=== PATIENT | female | born 1975 | race Caucasian/White ===

== ENCOUNTER 2020-07-21 10:18 | Outpatient (CLI) | payer BC, SELFPAY ==
[2020-07-21 11:53] LABS: Free T4 Free Thyroxine 1.64 ng/mL (0.78-2.19)
[2020-07-21 11:55] LABS: Thyroid Stimulating Hormone 0.835 uIU/mL (0.465-4.680)
[2020-07-24 13:58] LABS: FSH 52.7 mIU/mL (***); LH 27.9 mIU/mL (***)
[2020-07-25 11:56] LABS: Prolactin 6.7 ng/mL (***)
[2020-07-25 23:36] LABS: Estradiol, Ultrasensitive 10 pg/mL
== END 2020-07-21 10:19 | disposition home or self-care (01) ==
PROVIDERS: PCP Family Medicine; Visit Provider Nurse Practitioner
DX: N93.8 Other specified abnormal uterine and vaginal bleeding (principal)
CPT/HCPCS: 36415; 82670; 83001; 83002; 84146; 84439; 84443

== ENCOUNTER → 2020-09-12 00:16 | Outpatient (CLI) | payer BC, SELFPAY ==
[2020-09-12 18:19] LABS: SARS-CoV-2 RNA PCR Negative
== END ==
PROVIDERS: Family Provider Hospitalist; PCP Family Medicine; Visit Provider Obstetrics & Gynecology Gynecology
DX: Z01.812 Encounter for preprocedural laboratory examination (principal); Z20.822 Contact with and (suspected) exposure to COVID-19
CPT/HCPCS: C9803; U0003; U0005

== ENCOUNTER 2020-09-15 00:20 | Day surgery (SDC) | payer BC, SELFPAY ==
[2020-09-09 13:51] VITALS: BMI 41.0
[2020-09-15 07:34] VITALS: BP 139/97; PULSE 97; RESP 18; TEMP 37.2; O2SAT 98
--- NOTE | 2020-09-15 07:45 | P.HP_ITS ---
History of Present Illness History of Present Illness Consent: Risks, benefits, and alternatives have been discussed and questions answered. Patient agrees to proceed with procedure. Chief complaint: Post Menpausal Bleeding Narrative: Myriam Small is a 45 year old female with postmenopausal bleeding. Hysteroscopy in office showed large polyp appearing mass. Patient did not tolerate attempt to remove mass. Recommend to proceed in OR and remove with myosure. Reviewed risks of infection, bleeding, perforation, and fluid imbalance. Agrees to proceed. Review of Systems Review of Systems: Narrative: review of systems not completed on date of surgery; patient states no change in status [facility] Past Medical History Medical History (Updated 09/15/20 @ 07:50 by Sherine Amaro MD) HTN (hypertension) Hypothyroid (normal spontaneous vaginal delivery) Rheumatoid arthritis Status post hysteroscopy Surgical History Surgical History (Updated 09/15/20 @ 07:49 by Sherine Amaro MD) S/P breast biopsy Social History Social History Smoking status: Never smoker Substance use: never Living arrangements: with friend(s) Gender identity (if verbalized by the patient): Female Spiritual care concerns: No Meds Home Medications and Allergies Home Medications Medication Instructions Recorded Confirmed Type diclofenac sodium 75 mg PO DAILY 09/09/20 09/09/20 History etanercept [Enbrel SureClick] 50 mg SUBCUT DAILY 09/09/20 09/09/20 History folic acid 1 mg PO DAILY 09/09/20 09/09/20 History levothyroxine [Synthroid] 150 mcg PO DAILY 09/09/20 09/09/20 History methotrexate sodium 25 mg PO DAILY 09/09/20 09/09/20 History montelukast 10 mg PO DAILY 09/09/20 09/09/20 History omeprazole 40 mg PO DAILY 09/09/20 09/09/20 History propranolol 20 mg PO DAILY 09/09/20 09/09/20 History Allergies Allergy/AdvReac Type Severity Reaction Status Date / Time diphenhydramine Allergy Mild Palpitation Verified 09/15/20 07:49 s Exam Const: General: healthy appearing and alert Orientation/consciousness: patient oriented x3 Resp: Effort & Inspection: normal respiratory effort Auscultation: clear to auscultation bilaterally Cardio: Rate: regular rate Rhythm: regular rhythm GI: GI Palp: Yes Soft to palpation, No Tenderness to palpation present (GI) and No Palpable mass present : External Female Exam: normal external appearance Speculum Exam - Vagina: normal appearance of the vagina and normal vaginal discharge Speculum Exam - Cervix: normal appearance of the cervix Bimanual exam- vagina & uterus: uterine size normal and consistency normal Bimanual Exam- Adnexa, other: normal adnexae and No adnexal tenderness Neuro: General: patient oriented x3 Assessment and Plan Assessment and plan (1) Post-menopausal bleeding: Code(s): N95.0 - Postmenopausal bleeding Status: Acute Assessment and Plan: Endometrial polyp noted in office and plan to remove with myosure.
--- NOTE | 2020-09-15 07:45 | WPDHPUPDATE1 ---
History and Physical Update Update Date/Time: 09/15/20 07:45 History and Physical has been reviewed, including an updated exam of the patient. There are NO changes in the patient's condition. Risks, benefits, and alternatives have been discussed and questions answered. Patient agrees to proceed with procedure.
[2020-09-15] MEDS: ACETAMINOPHEN 500 MG TABLET 1000 MG PO (07:47)
[2020-09-15] MEDS: LACTATED RINGERS 1,000 ML 30 ML IV CONT (08:24)
[2020-09-15 08:33] LABS: Hematocrit 39.8 % (37.0-47.0); Hemoglobin 13.4 g/dL (12.0-15.0)
--- NOTE | 2020-09-15 08:34 | P.PNAN_ITS ---
Anes - Initial Pre Proc Eval Procedure: Operation Date: 09/15/20 09:15 Proposed Procedures p Hysteroscopy Dilation and Curettage With Myosure - Sherine Amaro MD Date/Time: 09/15/20 08:34 Surgeon: Sherine Amaro MD Pre Op Diagnosis: Post Menpausal Bleeding Patient Data Age: 45 Gender: F Height: 5 ft 3 in Weight: 108 kg Allergies Allergy/AdvReac Type Severity Reaction Status Date / Time diphenhydramine Allergy Mild Palpitation Verified 09/15/20 07:49 s Home Medications Medication Instructions Recorded Confirmed Type diclofenac sodium 75 mg PO DAILY 09/09/20 09/15/20 History etanercept [Enbrel SureClick] 50 mg SUBCUT DAILY 09/09/20 09/15/20 History folic acid 1 mg PO DAILY 09/09/20 09/15/20 History levothyroxine [Synthroid] 150 mcg PO DAILY 09/09/20 09/15/20 History methotrexate sodium 25 mg PO DAILY 09/09/20 09/15/20 History montelukast 10 mg PO DAILY 09/09/20 09/15/20 History omeprazole 40 mg PO DAILY 09/09/20 09/15/20 History propranolol 20 mg PO DAILY 09/09/20 09/15/20 History Laboratory Tests 09/15/20 08:23 Hgb 13.4 g/dL g/dL (12.0-15.0) Hct 39.8 % % (37.0-47.0) Patient hx anesthesia problems: none Family hx anesthesia problems: none [facility] Past Medical History Medical History HTN (hypertension) Hypothyroid (normal spontaneous vaginal delivery) Rheumatoid arthritis Status post hysteroscopy Surgical History Surgical History S/P breast biopsy Social History Social History Smoking status: Never smoker Substance use: never Living arrangements: with friend(s) Gender identity (if verbalized by the patient): Female Spiritual care concerns: No Anes - Eval Final PreProcedure Day of Procedure 09/15/20 08:34 Patient weight: morbidly obese Heart: regular rate and rhythm Lungs: clear to auscultation Airway: Mallampati scale class II Neurological: alert and oriented Last oral intake: >/= 8 hours ASA classification: III Emergent: no Anesthetic plan: proceed Anesthesia type and monitoring: general GIVS and standard monitoring Informed Consent: The patient's anesthetic plan and its attendant risks and benefits were discussed with the patient/family/POA. Questions were solicited and answers provided to the satisfaction of the patient/family/POA.
[2020-09-15 09:28] VITALS: BP 139/90; PULSE 76; RESP 16; O2SAT 96
[2020-09-15] MEDS: oxyCODONE HCL (*CRX) 5 MG TAB IR PO (09:52)
[2020-09-15 10:00] VITALS: BP 145/97; PULSE 75
--- NOTE | 2020-09-15 10:08 | P.OP_ITS ---
Procedure Note - Detailed Date of procedure: 09/15/20 Pre-op diagnosis: Post Menpausal Bleeding Post-op diagnosis: same Procedure performed: D&C hysteroscopy with myosure resection of large polyp Description of procedure: The patient was taken to the operating room placed under anesthesia in the dorsal lithotomy position. She was prepped and draped in the usual sterile fashion. [place] speculum was placed in the vagina, cervix was grasped on the anterior lip with a tenaculum, and the cervix was injected with 1% lidocaine. The uterus was sounded to 8cm after os Finders were used to open the internal os. The cervix was then serially dilated with Hegars. The hysteroscope was placed with the stated findings. The MyoSure device is opened in placed. The large polyp was removed under direct visualization with the MyoSure device. The instruments were removed the medium sharp curette is used to curette the endometrium until a good uterine cry was noted in all areas. All vaginal instruments were then removed. Sponge, instrument, and needle counts are correct per the OR staff. Anesthesia: MAC and local Surgeon: Sherine Amaro MD Estimated blood loss (mL): 10 Drains: No Packing: No Pathology: yes (endometrial curettings and shavings) Complications: No immediate complications Condition: stable Disposition: PACU Findings: uterus 8 cm; large anterior polyp; grossly normal endometrium
[2020-09-15 10:30] VITALS: BP 128/87; PULSE 63
== END 2020-09-15 10:52 | disposition home or self-care (01) ==
PROVIDERS: Anesthesiology; Family Provider Hospitalist; PCP Family Medicine; Visit Provider Obstetrics & Gynecology Gynecology
PROC: 0U5B8ZZ Destruction of Endometrium, Via Natural or Artificial Opening Endoscopic (ICD-10-PCS; CPT 58563; principal; 2020-09-15 09:15)
DX: N95.0 Postmenopausal bleeding (principal); N84.0 Polyp of corpus uteri; I10 Essential (primary) hypertension; E03.9 Hypothyroidism, unspecified; M06.9 Rheumatoid arthritis, unspecified; E66.01 Morbid (severe) obesity due to excess calories; Z68.41 Body mass index [BMI] 40.0-44.9, adult
CPT/HCPCS: 58558; 36415; 85014; 85018; 88305; A9270; C9803; J1100; J1885; J2250; J2405; J2704; J3010; J7030; J7120; U0003; U0005

== ENCOUNTER 2023-04-07 04:33 | Emergency (ER) | payer BC, SELFPAY ==
[2023-04-07] VITALS (25 sets, daily range): BP systolic 112–134; BP diastolic 71–94; PULSE 78–90; RESP 16–18; TEMP 36.2; O2SAT 93–100
--- NOTE | ~2023-04-07 | CT_ITS ---
EXAMINATION: CT brain wo con DATE: 04/07/2023 08:49 INDICATION: Headache TECHNIQUE: Computed tomography (CT) of the head was performed without intravenous contrast. Sagittal and coronal reconstructions were performed. The mA was adjusted according to patient size. Iterative reconstruction technique was employed. The dose-length product was 605.33 mGy-cm. COMPARISON: Brain MR dated 12/17/2010 FINDINGS: No acute intracranial hemorrhage, acute infarction or abnormal extra axial fluid collection. Ventricl es are normal and symmetric. No mass/mass effect. Minimal fluid in the dependent aspect of the bilate ral maxillary sinuses. The orbits and mastoid air cells are normal. IMPRESSION: 1. Normal brain. No acute intracranial process. 2. Small amount of fluid in the dependent aspect of the bilateral maxillary sinuses. Correlate clinic ally for sinusitis. Reviewed, dictated and finalized at location A. IMPRESSION: 1. Normal brain. No acute intracranial process. 2. Small amount of fluid in the dependent aspect of the bilateral maxillary sin uses. Correlate clinically for sinusitis.
--- NOTE | 2023-04-07 07:15 | PC.NURSE ---
Patient report received from TEMI Garcia. All questions answered and care of patient assumed.
--- NOTE | 2023-04-07 07:20 | ED.GENADULT ---
HPI - General Adult General Chief complaint: Headache Stated complaint: Headache/migraine Time Seen by Provider: 04/07/23 07:19 Source: patient and family Mode of arrival: ambulatory Limitations: no limitations History of Present Illness HPI narrative: 47 years old white female came to the ED by private car complaining of right-sided temporal headache and pressure-like feeling across the face. Started last night, woke up at 3 AM with nausea and vomiting. 10 out of 10, associated with numbness of the right upper extremity. She denies any fever, chills, chest pain, shortness of breath or focal neurodeficit patient reports last migraine headache was years ago Related Data Home Medications Medication Instructions Recorded Confirmed diclofenac sodium 75 mg 75 mg PO DAILY 09/09/20 09/15/20 tablet,delayed release etanercept 50 mg/mL (1 mL) 50 mg subcut DAILY 09/09/20 09/15/20 subcutaneous pen injector (Enbrel SureClick) levothyroxine 150 mcg tablet 150 mcg PO DAILY 09/09/20 09/15/20 (Synthroid) montelukast 10 mg tablet 10 mg PO DAILY 09/09/20 09/15/20 omeprazole 40 mg capsule,delayed 40 mg PO DAILY 09/09/20 09/15/20 release propranolol 20 mg tablet 20 mg PO DAILY 09/09/20 09/15/20 Allergies Allergy/AdvReac Type Severity Reaction Status Date / Time diphenhydramine Allergy Mild Palpitation Verified 04/07/23 05:31 s Review of Systems Review of Systems: All systems reviewed & are unremarkable except as noted in HPI and below PMFSH Past Medical History Medical History Allergic rhinitis Depression GERD with esophagitis HTN (hypertension) Hypothyroidism Rheumatoid arthritis Vitamin D deficiency Surgical History Surgical History History of ankle surgery left History of colonoscopy 12/26/2009 History of esophagogastroduodenoscopy (EGD) 12/19/2009 History of surgery on left wrist 09/2010 S/P breast biopsy Status post hysteroscopy Family History Family History Mother Diabetes mellitus Hypertension Social History Social History Smoking status: Never smoker Alcohol intake: current Alcohol use details: Occasionally Substance use: never Substance use type: does not use Lack of Transportation: No Lack of Food: Never True Current Housing: I Have Housing Concerned About Future Housing: No Difficulty Paying Gas/Electric Bills: No Difficulty Paying for Meds: No Currently Unemployed: No Education: High School Diploma/GED Difficulty w/ Childcare or Family Care: No Living arrangements: with family Occupation/Education: occupation Gender identity (if verbalized by the patient): Female Sexual Orientation (if Verbalized by the Patient): Straight or Heterosexual Spiritual care concerns: No Exam Narrative: General appearance: Well-developed, well-nourished, have a towel across her eyes, light makes the headache worse Skin: Normal color Head: Normocephalic, nontraumatic Eyes: Clear conjunctiva ENT: Oropharynx normal, ears normal, nose normal Neck: Supple, nontender Chest and respiratory: Airway patent, no respiratory distress, no accessory muscle use Heart: Regular rate/rhythm Abdomen: Soft, nontender, no organomegaly, quiet bowel sounds Vascular: Normal peripheral pulses, normal capillary refill. Musculoskeletal: Normal range of motion, nontender back Neurologic: Alert and oriented ?3, TAXICAB STARTER is normal as tested, no gross motor deficit Course Reevaluation(s) Reevaluatio
[2023-04-07] MEDS: SODIUM CHLORIDE 0.9% IV 1,000 ML 999 ML IV CONT ×2 (07:57→09:06)
[2023-04-07] MEDS: METOCLOPRAMIDE HCL INJ 10 MG/2 ML VIAL IV PUSH (07:58)
[2023-04-07] MEDS: ONDANSETRON INJ 4 MG/2 ML VIAL IV PUSH (07:58)
[2023-04-07] MEDS: KETOROLAC 30 MG/ML VIAL (*BKC) IV PUSH (07:58)
[2023-04-07] MEDS: LORazepam INJ (*CRX) 2 MG/ML VIAL 1 MG IV PUSH (09:06)
[2023-04-07 09:20] LABS: Appearance Urine Cloudy (Clear); Bacteria Urine None Seen /hpf; Bilirubin Urine Negative (Negative); Blood Urine Negative (Negative); Color Urine Yellow (Yellow); Glucose Urine UA Negative (Negative); Ketones Urine Trace mg/dL (Negative); Leukocyte Esterase Ur 2+ LEU/UL (Negative); Nitrate Urine Negative (Negative); Non Pathogenic Casts 0-2; Protein Urine Negative (Negative); RBC Urine 0-2 /hpf (0-2); Specific Grav Ur 1.014 (1.001-1.035); Squamous Epithelial Cell Urine Few /hpf (Few); Urobilinogen Urine 0.2 mg/dL (<2.0)
[2023-04-07 09:55] LABS: Basophils Percent Auto 0.4 % (0.2-1.2); Eosinophils Absolute Auto 0.1 K/mm3 (0-0.3); Eosinophils Percent Auto 0.9 % (0-4.4); Hematocrit 36.5 % (37.0-47.0); Immature Granulocyte Absolute 0.01 K/mm3 (0.00-0.031); Immature Granulocyte Percent A 0.1 % (0-0.5); Lymphocytes Absolute Auto 1.57 K/mm3 (0.9-3.2); Lymphocytes Percent Auto 23.1 % (18.3-44.2); Mean Corpuscular HGB Conc 32.9 g/dl (32-36); Mean Corpuscular Hemoglobin 29.9 pg (26-34); Mean Platelet Volume 10.7 fl (7.4-10.4); Monocytes Absolute Auto 0.4 K/mm3 (0.1-0.6); Neutrophils Absolute Auto 4.7 K/mm3 (1.3-6.7); Neutrophils Percent Auto 69.5 % (45.5-73.1); Platelet Count Result 240 k/mm3 (150-375); Red Blood Count 4.01 M/mm3 (4.2-5.4); Red Cell Distribution Width 12.6 % (11.5-14.5); White Blood Count 6.8 K/mm3 (4.5-10.0)
[2023-04-07 10:03] LABS: Add Urine Microscopic? YES
[2023-04-07 10:05] LABS: Anion Gap 8 mmol/L (8-16); Blood Urea Nitrogen 11 mg/dL (7-17); Carbon Dioxide 25 mmol/L (22-30); Chloride 106 mmol/L (98-107); Estimated CRCL calculation 127 ml/min; Estimated Glomerular Filt Rate > 60; Glucose 96 mg/dL (65-110); Potassium 3.8 mmol/L (3.4-5.0); Sodium 139 mmol/L (137-145)
[2023-04-07 10:06] LABS: Alanine Aminotransferase 24 U/L (6-35); Albumin Level 3.6 g/dL (3.5-5.1); Alkaline Phosphatase 49 U/L (38-126); Aspartate Amino Transferase 32 U/L (14-36); Bilirubin,Total 0.5 mg/dL (0.2-1.3)
== END 2023-04-07 11:25 | disposition home or self-care (01) ==
PROVIDERS: Emergency Provider Emergency Medicine; PCP Family Medicine
DX: N39.0 Urinary tract infection, site not specified (principal); J01.90 Acute sinusitis, unspecified; R51.9 Headache, unspecified; I10 Essential (primary) hypertension; E03.9 Hypothyroidism, unspecified; E55.9 Vitamin D deficiency, unspecified; M06.9 Rheumatoid arthritis, unspecified; K21.00 Gastro-esophageal reflux disease with esophagitis, without bleeding
CPT/HCPCS: 36415; 70450; 80053; 81001; 85025; 87077; 87086; 87088; 96361; 96374; 96375; 99284; J1885; J2060; J2405; J2765; J7030

== ENCOUNTER 2024-10-26 13:39 | Outpatient (CLI) | payer BC, OTHER, SELFPAY ==
--- OUTSIDE RECORDS SUMMARY | 2024-10-26 13:48 | XMS_ITS | Referral Summary ---
Author Organization [facility] Address [address] [place] [address] Care Team Providers Care Key Sander Name Role Phone Arlen Gant Primary Care Provider Encounters Date Type Department Care Team Description 08/29/2024 Telephone [facility] [address] [place] [address] Sherine Shaw, [facility] 08/29/2024 Telephone [facility] at [facility] [address] [place] [address] Martha Goodwin MD PA from Last 3 Months Allergies Active Allergy Reactions Criticality Noted Date Comments Diphenhydramine Medications levothyroxine (SYNTHROID, LEVOTHROID) 150 mcg tablet daily. Active omeprazole (PriLOSEC) 40 mg capsule daily. Active propranolol (INDERAL) 20 mg tablet Take 1 tablet (20 mg total) by mouth daily 10/18/19 19 Active montelukast (SINGULAIR) 10 mg tablet Take 1 tablet (10 mg total) by mouth nightly 08/27/19 20 Active UNABLE TO FIND Med Name: Autologous serum in each eye 4 times a day Active Lactobacillus acidophilus (PROBIOTIC ORAL) Take by mouth daily Active pyridoxine (vitamin B-6) 100 mg tablet Take 1 tablet (100 mg total) by mouth daily Active semaglutide (WEGOVY) 2.4 mg/0.75 mL auto-injector 03/15/20 23 Active vitamin S89-[id number] acid 0.5-1 mg tablet 12/31/19 23 Active fluticasone propionate (FLONASE) 50 mcg/actuation nasal spray 2 sprays daily 09/07/19 24 Active etanercept (EnbreL SureClick) 50 mg/mL (1 mL) pen injector Inject 1 mL (50 mg total) under the skin once a week 12 mL 08/30/[address] (VOLTAREN) 75 mg EC tablet TAKE 1 TABLET TWICE A DAY 180 tablet 3 10/02/[address] (VOLTAREN) 75 mg EC tablet TAKE 1 TABLET TWICE A DAY 180 tablet 3 10/06/19 24 025 Discontinued Active Problems Problem Noted Date Diagnosed Date Class 1 obesity due to exces s calories with serious comorbidity and body mass index (BMI) of 33.0 to 33.9 in adult 11/04/2023 Assessment & Plan (11/04/2023 9:28 AM CDT): Doing great with weight loss! A body mass index (BMI) of 20-24.9 is considered healthy for most individuals. A combination of diet and exercise can help to attain/maintain a healthy BMI is recommended to improve vascular risk factors and diabetes risk. A 5-10% weight loss can have significant cardiovascular benefits. Also, each pound of weight lost unloads 3-4 pounds per square inch pressure from weight bearing joints. Significantly reducing or avoiding overly processed convenience foods, sugary drinks and alcohol is an important way to improve nutrition and reduce the intake of empty calories. Rheumatoid arthritis involvi ng multiple sites with positive rheumatoid factor 12/20/2022 Assessment & Plan (11/04/2023 9:48 AM CDT): Stable on enbrel. Continue same. Labs today. Follow up in 6 months and prn. Assessment & Plan (12/20/2022 12:44 PM CDT): Stable on enbrel, plan to continue same. Follow up in 6 months and prn. Encounter for long-term (cur rent) use of high-risk medication 12/20/2022 Assessment & Plan (11/04/2023 9:48 AM CDT): Long-term use of high-risk medication requiring regular monitoring. Labs ordered, no s/s of med tox or infection. Encouraged to work with PCP to make sure all recommended cancer screens and vaccinations are complete. Avoid live-vaccines unless reviewed with needle punch operator first. TB negative November 2022. Assessment & Plan (12/20/2022 12:44 PM CDT): Long-term use of high-risk medication requiring regular monitoring. Labs ordered, no s/s of med tox or infection. Encouraged to work with PCP to make sure all recommended cancer screens and vaccinations are complete. Avoid live-vaccines unless reviewed with needle punch operator first. Thyroid activity decreased 01/08/2015 Hypertension 01/08/2015 Pain in shoulder 11/05/2013 Assessment & Plan (11/04/2023 9:49 AM CDT): Most consistent with tendonitis. Prefers conservative treatment. Will take acetaminophen and her diclofenac. Advise warm pack prior to yoga and ice pack following. Home shoulder exercise handout provided. If not improving will proceed on to imaging and PT, possibly IASI. Immunizations Immunization Administration Dates Next Due Influenza, Quadrivalent, Ayla l Culture-based MDCK, Antibiotic Free, Intramuscular 07/01/2020 Influenza, Quadrivalent, Spl it, Preservative Free, Intramuscular 07/22/2021 Influenza, Trivalent, IM (MDV) 9,04/12/2018,07/05/2017,05/01 Influenza, Trivalent, Preser vative Free, Intramuscular 06/13/2024 Social History Tobacco Use Types Packs/Day Years Used Date Smoking Tobacco: Never Smokeless Tobacco: Never Tobacco Cessation:Counseling Given: Not Answered AUDIT-C Answer Date Recorded Q1: How often do you have a drink containing alc ohol? Monthly or less 06/13/2024 Q2: How many drinks containi ng alcohol do you have on a typical day when you are drinking? 1 or 2 06/13/2024 Q3: How often do you have si x or more drinks on one occasion? Never 06/13/2024 PHQ-2 Answer Date Recorded PHQ-2 Total Score (If total score is 3 or more points, staff should administer the PHQ-9) 0 06/13/2024 Comments Unknown Sex and Gender Information Value Date Recorded Sex Assigned at Not on file Legal Sex Female 12:32 PM TOWER OPERATOR Gender Identity Female 10/18/2018 8:14 AM CDT Sexual Orientation Not on file Last Filed Vital Signs Vital Sign Reading Time Taken Comments Blood Pressure 118/80 06/13/2024 10:51 AM TOWER OPERATOR Pulse 77 06/13/2024 10:51 AM TOWER OPERATOR Temperature 36.7 C (98 F) 06/13/2024 10:51 AM TOWER OPERATOR Respiratory Rate 18 11/04/2023 9:16 AM CDT Oxygen Saturation 98% 06/13/2024 10:51 AM TOWER OPERATOR Inhaled Oxygen Concentration - - Weight 90.3 kg (199 lb 1.6 oz) 06/13/2024 10:51 AM TOWER OPERATOR Height 162.6 cm (5' 4.02 ) 06/13/2024 10:[address] Body Mass Index 34.16 06/13/2024 10:51 AM TOWER OPERATOR Plan of Treatment Not on file Procedures Procedure Name Priority Date/Time Associated Diagnosis Comments HEPATITIS PANEL, ACUTE Routine 07/22/2021 1:58 PM TOWER OPERATOR Long-term use of high-risk medication from Last 3 Months or Most Recently Relevant to Health Maintenance Results * Hepatitis panel, acute (07/22/2021 1:58 PM TOWER OPERATOR) Hep A IgM Nonreactive Nonreactive [facility] Comment: Interpretive Data: If Hep A IgM Ab is reported as Equivocal, a new sample should be drawn in two weeks for testing. Current interpretive data was last revised on 19. Hep B core IgM Nonreactive Nonreactive [facility] Comment: Interpretive Data If HepB Core IgM Ab is reported as Equivocal, a new sample should be drawn in two weeks for testing. Current interpretive data was last revised on 19. Hep C Ab Nonreactive Nonreactive [facility] Comment: Interpretive Data Nonreactive: Antibodies to HCV not detected. Does NOT exclude the possibility of recent exposure to HCV. Equivocal: Equivocal for HCV antibodies. Supplemental molecular testing will be automatically performed to determine infection status in accordance with current CDC screening recommendations. Reactive: Positive for HCV antibodies. This may represent current or past HCV infection. Supplemental molecular testing will be automatically performed to determine current infection status in accordance with current CDC screening recommendations. Interpretive data was last revised on 2019. HepBsAg Nonreactive Nonreactive [facility] Blood 07/22/2021 1:58 PM TOWER OPERATOR 07/22/2021 4:23 PM TOWER OPERATOR Martha Goodwin MD LAB MICROBIOLOGY - NERAL ORDERABLES Final Result [facility] [address] [place] [address] from Last 3 Months or Most Recently Relevant to Health Maintenance Insurance [employer] FOR[facility] ACCESS Care Teams Key Sander Relationship Specialty Start Date End Date Arlen Gant PA [address] [place] [id number] PCP - General Family Medicine 03/23/21
--- OUTSIDE RECORDS SUMMARY | 2024-10-26 13:48 | XMS_ITS | Clinical Summary ---
Author Organization [facility] Care Team Providers Care Cow Puncher Name Role Phone Unavailable Primary Care Provider Unavailabl e Social History Tobacco Use Types Packs/Day Years Used Date Smoking Tobacco: Never Assessed Comments Unknown Sex and Gender Information Value Date Recorded Sex Assigned at Not on file Legal Sex Female 10:25 AM CDT Gender Identity Not on file Sexual Orientation Not on file Plan of Treatment Health Maintenance Due Date Last Done Comments Hepatitis C Virus (HCV) Screening 1977 TdaP Immunization 1977 Hepatitis B Immunization (1 of 3 - 19+ 3-dose series) 1996 Colonoscopy 2022 Colorectal Cancer Screening 2022 SARS-COV-2 Immunization (3 - 2023- season) 2024 11/03/2020, 10/12/2020 Respiratory Syncytial Virus (RSV) Immunization (Adult) (1 - 1-dose 75+ series) 2052 Influenza Immunization Completed 5, 07/01/2020, 04/17/2019, Additional history exists Meningococcal Immunization (ACWY) Aged Out No longer eligible based on patient's age to complete this topic Pneumococcal Immunization Combined Aged Out No longer eligible based on patient's age to complete this topic Rotavirus Immunization Aged Out No lo nger eligible based on patient's age to complete this topic
--- OUTSIDE RECORDS SUMMARY | 2024-10-26 13:48 | XMS_ITS | Clinical Summary ---
Author Organization [facility] Address [address] [place] [address] Care Team Providers Care Environmental Compliance Inspector Name Role Phone Arlen Gant Primary Care Provider [phone] Allergies Active Allergy Reactions Criticality Noted Date [...] mg/0.75 mL auto-injector 03/15/20 23 Active vitamin F36-wksvy acid 0.5-1 mg tablet 12/31/19 23 Active [...] are complete. Avoid live-vaccines unless reviewed with supervisor shrimp pond first. TB negative November 2022. Assessment & Plan (12/20/2022 12:44 PM CDT): Long-term use of high-risk medication requiring regular monitoring. Labs ordered, no s/s of med tox or infection. Encouraged to work with PCP to make sure all recommended cancer screens and vaccinations are complete. Avoid live-vaccines unless reviewed with supervisor shrimp pond first. Thyroid activity decreased 01/08/2015 Hypertension 01/08/2015 Pain in shoulder 11/05/2013 Assessment & Plan (11/04/2023 9:49 AM CDT): Most consistent with tendonitis. Prefers conservative treatment. Will take acetaminophen and her diclofenac. Advise warm pack prior to yoga and ice pack following. Home shoulder exercise handout provided. If not improving will proceed on to imaging and PT, possibly IASI. Encounters Date Type Department Care Team Description 08/29/2024 Telephone [facility] [address] [place] [address] Sherine Shaw [facility] 08/29/2024 Telephone [facility] Rheumatology at [facility] [address] [place] [address] Martha Goodwin MD PA from Last 3 Months Immunizations Immunization Administration Dates Next Due Influenza, Quadrivalent, Ayla l Culture-based MDCK, Antibiotic Free, Intramuscular 07/01/2020 Influenza, Quadrivalent, Spl it, Preservative Free, Intramuscular 07/22/2021 Influenza, Trivalent, IM (MDV) 9,04/12/2018,07/05/2017,05/01 Influenza, Trivalent, Preser vative Free, Intramuscular 06/13/2024 Medical History Medical History Date Comments GERD (gastroesophageal reflux disease) Anxiety Arthritis Autoimmune disease Rheumatoid arthritis (HCC) Family History Medical History Relation Name Comments Depression Brother DJ Diabetes Brother DJ Cancer Father Boni Depression Father Boni Hypertension Father Boni Family history of hypertension - (Added by TW Conv) Diabetes Mother Abeba Hypertension Mother Abeba Family history of hypertension - (Added by TW Conv) Diabetes Paternal Grandfather [place] Relation Name Status Comments Brother DJ Father Boni Mother Abeba Alive Paternal Grandfather [place] Social History Tobacco Use Types Packs/Day Years [...] on file Legal Sex Female 12:32 PM WIRE CUTTER Gender Identity Female 10/18/2018 8:14 AM CDT Sexual Orientation Not on file Obstetrics History Last Filed Vital Signs Vital Sign Reading Time Taken Comments Blood Pressure 118/80 06/13/2024 10:51 AM WIRE CUTTER Pulse 77 06/13/2024 10:51 AM WIRE CUTTER Temperature 36.7 C (98 F) 06/13/2024 10:51 AM WIRE CUTTER Respiratory Rate 18 11/04/2023 9:16 AM CDT Oxygen Saturation 98% 06/13/2024 10:51 AM WIRE CUTTER Inhaled Oxygen Concentration - - Weight 90.3 kg (199 lb 1.6 oz) 06/13/2024 10:51 AM WIRE CUTTER Height 162.6 cm (5' 4.02 ) 06/13/2024 10:[address] Body Mass Index 34.16 06/13/2024 10:51 AM WIRE CUTTER Plan of Treatment Health Maintenance Due Date Last Done Comments Breast Cancer Screening-Mammogram 1977 Cervical Cancer Screening 1977 Colon Cancer Screening-Colonoscopy 1977 DTaP/Tdap/Td Vaccine (1 - Tdap) 1988 Hepatitis B Screening 1995 Regular Well Visit/Exam 18-64 1995 Covid-19 Vaccine ( season) 2024 03/26/2021, 11/03/2020, 10/12/2020 Depression Screening 06/13/2025 06/13/2024, 10/30/19 Hepatitis C Screening Completed 07/22/2021 Influenza Vaccine Completed 06/13/2024, , 07/01/2020, Additional history exists Pneumococcal vaccine <65 Aged Out No longer eligible based on patient's age to complete this topic Procedures Procedure Name Priority Date/Time Associated Diagnosis Comments HEPATITIS PANEL, ACUTE Routine 07/22/2021 1:58 PM WIRE CUTTER Long-term use of high-risk medication from Last 3 Months or Most Recently Relevant to Health Maintenance Results * Hepatitis panel, acute (07/22/2021 1:58 PM WIRE CUTTER) Hep A IgM Nonreactive Nonreactive [facility] Comment: Interpretive Data: If Hep A IgM Ab is reported as Equivocal, a new sample should be drawn in two weeks for testing. Current interpretive data was last revised on 19. Hep B core IgM Nonreactive Nonreactive [facility] Comment: Interpretive Data If HepB Core IgM Ab is reported as Equivocal, a new sample should be drawn in two weeks for testing. Current interpretive data was last revised on 19. Hep C Ab Nonreactive Nonreactive [facility] Comment: Interpretive Data Nonreactive: Antibodies to HCV [...] last revised on 2019. HepBsAg Nonreactive Nonreactive [facility] Blood 07/22/2021 1:58 PM WIRE CUTTER 07/22/2021 4:23 PM WIRE CUTTER Martha Goodwin MD LAB MICROBIOLOGY - NERAL ORDERABLES Final Result [facility] [address] Department [place] [address] from Last 3 Months or Most Recently Relevant to Health Maintenance Insurance [employer] [place] ANTH ACCESS ANTHEM ACCESS Care Teams Environmental Compliance Inspector Relationship Specialty Start Date End Date Arlen Gant PA [address] [place], [place] [address] PCP - General Family Medicine 03/23/21
[2024-10-26 18:02] LABS: Hematocrit 43.8 % (37.0-47.0); Hemoglobin 14.6 g/dL (12.0-15.0); Mean Corpuscular HGB Conc 33.3 g/dl (32-36); Mean Corpuscular Hemoglobin 29.4 pg (26-34); Mean Corpuscular Volume 88.3 fl (80-100); Platelet Count Result 324 k/mm3 (150-375); Red Blood Count 4.96 M/mm3 (4.2-5.4); Red Cell Distribution Width 12.7 % (11.5-14.5); White Blood Count 9.1 K/mm3 (4.5-10.0)
[2024-10-26 18:26] LABS: Alanine Aminotransferase 23 U/L (6-35); Albumin Level 4.4 g/dL (3.5-5.1); Alkaline Phosphatase 80 U/L (38-126); Anion Gap 9 mmol/L (4-12); Aspartate Amino Transferase 33 U/L (14-36); Bilirubin,Total 0.7 mg/dL (0.2-1.3); Blood Urea Nitrogen 14 mg/dL (7-17); Calcium 9.3 mg/dL (8.4-10.2); Carbon Dioxide 27 mmol/L (22-30); Chloride 104 mmol/L (98-107); Cholesterol 192 mg/dL (0-200); Estimated Glomerular Filt Rate > 60; Glucose 80 mg/dL (65-110); HDL Direct 60 mg/dL; Potassium 4.2 mmol/L (3.4-5.0); Sodium 140 mmol/L (137-145); Triglycerides 118 mg/dL (<150)
[2024-10-26 18:37] LABS: LDL Cholesterol Direct 97 mg/dL
[2024-10-26 18:42] LABS: Free T4 Free Thyroxine 1.92 ng/dL (0.78-2.19); Vitamin D 25 Hydroxy 14.8 ng/mL
== END 2024-10-26 13:40 | disposition home or self-care (01) ==
LOC: ANHGOSHLAB 13:40
PROVIDERS: PCP Family Medicine; Visit Provider Family Medicine
DX: E03.9 Hypothyroidism, unspecified (principal); I10 Essential (primary) hypertension; E55.9 Vitamin D deficiency, unspecified; E66.9 Obesity, unspecified
CPT/HCPCS: 36415; 80053; 80061; 82306; 84439; 84443; 85027

== ENCOUNTER 2024-12-21 15:50 | Outpatient (CLI) | payer BC, OTHER, SELFPAY ==
--- NOTE | ~2024-12-21 | CT_ITS ---
EXAMINATION: CT sinus wo con DATE: 12/21/2024 16:14 INDICATION: Left maxillary sinusitis TECHNIQUE: Computed tomography (CT) of the paranasal sinuses was performed without intravenous contra st. The dose-length product was 411.72 mGy-cm. Automated exposure control and iterative reconstructio n technique were employed. COMPARISON: Dated 04/07/2023 FINDINGS: There is minimal mucosal thickening of the left maxillary sinus. The remainder of the paran tito sinuses are pneumatized. No mucoperiosteal reaction. Ostiomeatal units are patent. Mastoids are pneumatized. Rightward nasal septal deviation. IMPRESSION: 1. Mild left maxillary sinus disease. Reviewed, dictated and finalized at location A.
== END 2024-12-21 15:51 | disposition home or self-care (01) ==
LOC: GOSHIMG 15:50
PROVIDERS: PCP Family Medicine; Visit Provider Family Medicine
DX: J34.89 Other specified disorders of nose and nasal sinuses (principal)
CPT/HCPCS: 70486

== ENCOUNTER 2025-02-15 11:23 | Outpatient (CLI) | payer BC, OTHER, SELFPAY ==
--- OUTSIDE RECORDS SUMMARY | 2025-02-15 11:26 | XMS_ITS | Clinical Summary ---
Author Organization [facility] Address [address] [place] [address] Care Team Providers Care Nc Manager Name Role Phone Arlen Gant Primary Care Provider [phone] Allergies Active Allergy Reactions Criticality Noted Date Comments Diphenhydramine Diphenhydramine Hcl Hives Medium 01/02/2025 Medications levothyroxine (SYNTHROID, LEVOTHROID) 150 mcg tablet daily. Active omeprazole (PriLOSEC) 40 mg capsule daily. Active propranolol (INDERAL) 20 mg tablet Take 1 tablet (20 mg total) by mouth daily 9 Active montelukast (SINGULAIR) 10 mg tablet Take 1 tablet (10 mg total) by mouth nightly 0 Active UNABLE TO FIND Med Name: Autologous serum in each eye 4 times a day Active Lactobacillus acidophilus (PROBIOTIC ORAL) Take by mouth daily Active pyridoxine (vitamin B-6) 100 mg tablet Take 1 tablet (100 mg total) by mouth daily Active vitamin L54-wcpqb acid 0.5-1 mg tablet 3 Active fluticasone propionate (FLONASE) 50 mcg/actuation nasal spray 2 sprays daily [address] (VOLTAREN) 75 mg EC tablet TAKE 1 TABLET TWICE A DAY 180 tablet 3 5 Active amoxicillin-cla vulanate (AUGMENTIN) 875-125 mg per tablet Take 1 tablet by mouth 2 (two) times a day 5 Active amoxicillin-cla vulanate (AUGMENTIN) 250-125 mg per tablet 5 Active predniSONE (DELTASONE) 10 mg tablet 5 Active Zepbound 10 mg/0.5 mL pen injector 5 Active Synthroid 125 mcg tablet 5 Active etanercept (EnbreL SureClick) 50 mg/mL (1 mL) pen injector Inject 1 mL (50 mg total) under the skin once a week 12 mL 5 Active etanercept (EnbreL SureClick) 50 mg/mL (1 mL) pen injector Inject 1 mL (50 mg total) under the skin once a week 4 mL 2 5 02/05/20 25 Discontin ued(Reord er) Active Problems Problem Noted Date Diagnosed Date [...] are complete. Avoid live-vaccines unless reviewed with chief concierge first. TB negative November 2022. Assessment & Plan (12/20/2022 12:44 PM CDT): Long-term use of high-risk medication requiring regular monitoring. Labs ordered, no s/s of med tox or infection. Encouraged to work with PCP to make sure all recommended cancer screens and vaccinations are complete. Avoid live-vaccines unless reviewed with chief concierge first. Thyroid activity decreased 01/08/2015 Hypertension 01/08/2015 [...] Encounters Date Type Department Care Team Description 01/02/2025 2:58 PM CDT - 01/02/2025 11:59 PM CDT Hospital Encounter [address] [place] [id number] Discharge Disposition: Discharge to home or self care 01/02/2025 9:45 AM CDT Office Visit [facility] Rheumatology at [facility] [address] [place] [id number] Martha Goodwin MD Rheumatoid arthritis involving multiple sites with positive rheumatoid factor (HCC) (Primary Dx); Encounter for long-term (current) use of high-risk medication; Class 1 obesity due to excess calories with serious comorbidity and body mass index (BMI) of 33.0 to 33.9 in adult; Sjogren's syndrome with keratoconjunctivitis sicca from Last 3 Months Immunizations Immunization Administration Dates Next Due Influenza, Quadrivalent, Ayla l Culture-based MDCK, Antibiotic Free, Intramuscular 07/01/2020 Influenza, Quadrivalent, Spl it, Preservative Free, Intramuscular 07/22/2021 Influenza, Trivalent, IM (MDV) 9,04/12/2018,07/05/2017,05/01 Influenza, Trivalent, Preser vative Free, Intramuscular 06/13/2024 Medical History Medical History Date Comments GERD (gastroesophageal reflux disease) Anxiety Arthritis Autoimmune disease Rheumatoid arthritis (HCC) Maxillary sinusitis 2024 Family History Medical History Relation Name Comments Depression Brother DJ Diabetes Brother DJ Cancer Father Boni Depression Father Boni Hypertension Father Boni Family history of hypertension - (Added by TW Conv) Diabetes Mother Abeba Hypertension Mother Abeba Family history of hypertension - (Added by TW Conv) Diabetes Paternal Grandfather [place] Relation Name Status Comments Brother SAULO Father Boni Mother Abeba Alive Paternal Grandfather [place] Social History Tobacco Use Types Packs/Day Years [...] on file Legal Sex Female 12:32 PM TUBE ROOM SUPERVISOR Gender Identity Female 10/18/2018 8:14 AM CDT Sexual Orientation Not on file Obstetrics History Last Filed Vital Signs Vital Sign Reading Time Taken Comments Blood Pressure 124/92 01/02/2025 10:14 AM CDT Pulse 77 01/02/2025 10:14 AM CDT Temperature 36.7 C (98 F) 01/02/2025 10:14 AM CDT Respiratory Rate 16 01/02/2025 10:1 4 AM CDT Oxygen Saturation 98% 01/02/2025 10: 14 AM CDT Inhaled Oxygen Concentration - - Weight 92.5 kg (203 lb 14.4 oz) 025 10:14 AM CDT Height 162.6 cm (5' 4.02) 01/02/2025 1 0:14 AM CDT Body Mass Index 34.98 01/02/2025 10:14 AM CDT Plan of Treatment Health Maintenance Due Date Last Done Comments Cervical Cancer Screening 1977 Colon Cancer Screening-Colonoscopy 1977 DTaP/Tdap/Td Vaccine (1 - Tdap) 1988 Hepatitis B Screening 1995 Regular Well Visit/Exam 18-64 1995 Covid-19 Vaccine ( season) 2024 03/26/2021, 11/03/2020, 10/12/2020 Influenza Vaccine (#1) 2025 , 07/22/2021, 07/01/2020, Additional history exists Depression Screening 06/13/2025 06/13/2024, 10/30/19 22 Breast Cancer Screening-Mammogram 12/22/2025 12/22/2024, 12/22/2024 Hepatitis C Screening Completed 07/22/2021 Pneumococcal vaccine <65 Aged Out No longer eligible based on patient's age to complete this topic Procedures Procedure Name Priority Date/Time Associated Diagnosis Comments EGFR Routine 01/02/2025 11:21 AM CDT Encounter for long-term (current) use of high-risk medication CBC WITHOUT DIFFERENTIAL Routine 01/02/2025 11:21 AM CDT Encounter for long-term (current) use of high-risk medication COMPREHENSIVE METABOLIC PANEL Routine 01/02/2025 11:21 AM CDT Encounter for long-term (current) use of high-risk medication ERYTHROCYTE SEDIMENTATION RATE Routine 01/02/2025 11:21 AM CDT Rheumatoid arthritis involving multiple sites with positive rheumatoid factor (HCC) HEPATITIS PANEL, ACUTE Routine 1:58 PM TUBE ROOM SUPERVISOR Long-term use of high-risk medication from Last 3 Months or Most Recently Relevant to Health Maintenance Results * eGFR (01/02/2025 11:21 AM CDT) eGFR >90 >=60 mL/min/1. 73 m2 Comment: Interpretive Data Reference Interval Normal >/= 90 mL/min/1.73m2 Mildly decreased* 60 - 89 mL/min/1.73m2 Mildly to moderately decreased 45 - 59 mL/min/1.73m2 Moderately to severely decreased 30 - 44 mL/min/1.73m2 Severely decreased 15 - 29 mL/min/1.73m2 Kidney Failure < 15 mL/min/1.73m2 *Relative to young adult level Estimated glomerular filtration rate is determined by the 2020 CKD-EPI equation recommended by the National Kidney Foundation (A Unifying Approach to GFR Estimation: Recommendations of the NKF-ASK Task Force on Reassessing the Inclusion of Race in Diagnosing Kidney Disease, JASN 2020). The CKD-EPI equation should not be used for patients with unstable renal function and has not been validated in children and those over 70. Current interpretive data was last reviewed 2021. Blood 01/02/2025 11:2 1 AM CDT 01/02/2025 3:44 PM CDT Martha Goodwin MD LAB BLOOD ORDERABLES Final Result Performing Organization Address City/[facility]/ZIP Co de Phone Number [facility] [place] [address] [place] [place] [address] * Erythrocyte sedimentation rate (01/02/2025 11:21 AM CDT) Erythrocyte sedimentation rate 12 1 - 20 mm/hr Blood 01/02/2025 11:2 1 AM CDT 01/02/2025 3:44 PM CDT Martha Goodwin MD LAB BLOOD ORDERABLES Final Result [facility] [address] Department [employer] [place] [address] * (ABNORMAL) CBC without differential (01/02/2025 11:21 AM CDT) [facility] WBC 10.87(H) 3.80 - 9.90 K/cumm Hgb 14.1 11.9 - 15.5 g/dL [facility] Hct 43.0 35.6 - 45.5 % [facility] Plt 351 150 - 400 K/cumm [facility] MPV 10.9 9.1 - 12.3 fL [facility] RBC 4.76 3.90 - 5.20 M/cumm [facility] MCV 90.3 81.3 - 96.4 fL [facility] MCH 29.6 27.1 - 33.3 pg [facility] MCHC 32.8 32.3 - 35.7 g/dL [facility] RDW CV 13.2 11.1 - 14.9 % [facility] RDW SD 43.4 35.7 - 48.1 fL [facility] NRBC abs 0.00 0.00 - 0.01 K/cumm [facility] Blood 01/02/2025 11:2 1 AM CDT 01/02/2025 3:44 PM CDT Martha Goodwin MD LAB BLOOD ORDERABLES Final Result [facility] [address] Department [place] [address] * (ABNORMAL) Comprehensive metabolic panel (01/02/2025 11:21 AM CDT) [facility] Sodium 140 135 - 145 mmol/L Potassium, pl 4.2 3.3 - 4.9 mmol/L [facility] Chloride 102 97 - 110 mmol/L [facility] CO2 23 22 - 32 mmol/L [facility] Anion gap 15 2 - 15 mmol/L [facility] BUN 24 6 - 25 mg/dL [facility] Creatinine 0.59(L) 0.60 - 1.10 mg/dL [facility] Glucose 104 70 - 199 mg/dL [facility] Comment: Interpretive Data Fasting glucose >/= 126 mg/dl is diagnostic for diabetes. Fasting is defined as no caloric intake for at least 8 hours. Fasting glucose between 100 mg/dl to 125 mg/dl is diagnostic of prediabetes. In a patient with classic symptoms of hyperglycemia or hyperglycemic crisis, a random glucose >/= 200 mg/dl is diagnostic for diabetes. In the absence of unequivocal hyperglycemia, results should be confirmed by repeat testing. The classification and Diagnosis of Diabetes Diabetes Care 2021; 46: S19-S40. Current interpretive data was last revised 2022. Calcium 9.5 8.5 - 10.3 mg/dL [facility] Bilirubin, total 0.4 0.1 - 1.2 mg/dL [facility] Protein, pl 7.3 6.5 - 8.5 g/dL [facility] Albumin 4.1 3.5 - 5.0 g/dL [facility] Alk phos 61 40 - 130 Units/L [facility] ALT 19 7 - 45 Units/L [facility] AST 18 10 - 45 Units/L [facility] Blood 01/02/2025 11:2 1 AM CDT 01/02/2025 3:44 PM CDT us Martha Goodwin MD LAB BLOOD ORDERABLES Final Result [facility] [address] Department [place] [address] * Hepatitis panel, acute (07/22/2021 1:58 PM TUBE ROOM SUPERVISOR) Hep A IgM Nonreactive Nonreactive [facility] Comment: Interpretive Data: If Hep A IgM Ab is reported as Equivocal, a new sample should be drawn in two weeks for testing. Current interpretive data was last revised on 19. Hep B core IgM Nonreactive Nonreactive [facility] Comment: Interpretive Data If HepB Core IgM Ab is reported as Equivocal, a new sample should be drawn in two weeks for testing. Current interpretive data was last revised on 19. Hep C Ab Nonreactive Nonreactive [facility] Comment: Interpretive Data Nonreactive: Antibodies to [...] revised on 2019. HepBsAg Nonreactive Nonreactive [facility] Blood 07/22/2021 1:58 PM TUBE ROOM SUPERVISOR 07/22/2021 4:23 PM TUBE ROOM SUPERVISOR us Martha Goodwin MD LAB MICROBIOLOGY - [facility] ORDERABLES Final Result [facility] [address] Department [place] [address] from Last 3 Months or Most Recently Relevant to Health Maintenance Insurance [employer] [place] [facility] [employer] ANTH ACCESS Care Teams Nc Manager Relationship Specialty Start Date End Date Arlen Gant PA [address] [place] [id number] PCP - General Family Medicine 03/23/21
--- OUTSIDE RECORDS SUMMARY | 2025-02-15 11:26 | XMS_ITS | Referral Summary ---
Author Organization [facility] Address [address] [place] [address] Care Team Providers Care Make Up Operator Helper Name Role Phone Arlen Gant Primary Care Provider [phone] Encounters Date Type Department Care Team Description 01/02/2025 2:58 PM CDT - 01/02/2025 11:59 PM CDT Hospital Encounter [id number] [place] [address] Discharge Disposition: Discharge to home or self care 01/02/2025 9:45 AM CDT Office Visit [facility] Rhe[facility]ology at [facility] [address] [place] [address] Martha Goodwin MD Rheumatoid arthritis involving multiple sites with positive rheumatoid factor (HCC) (Primary Dx); Encounter for long-term (current) use of high-risk medication; Class 1 obesity due to excess calories with serious comorbidity and body mass index (BMI) of 33.0 to 33.9 in adult; Sjogren's syndrome with keratoconjunctivitis sicca from Last 3 Months Allergies Active Allergy [...] mg total) by mouth daily Active vitamin L01-myaoi acid 0.5-1 mg tablet 3 Active fluticasone [...] are complete. Avoid live-vaccines unless reviewed with molasses coloring operator first. TB negative November 2022. Assessment & Plan (12/20/2022 12:44 PM CDT): Long-term use of high-risk medication requiring regular monitoring. Labs ordered, no s/s of med tox or infection. Encouraged to work with PCP to make sure all recommended cancer screens and vaccinations are complete. Avoid live-vaccines unless reviewed with molasses coloring operator first. Thyroid activity decreased 01/08/2015 Hypertension [...] on file Legal Sex Female 12:32 PM GLOVE FORMER Gender Identity Female 10/18/2018 8:14 AM CDT [...] 01/02/2025 10:14 AM CDT Plan of Treatment Not on file Procedures [...] (HCC) HEPATITIS PANEL, ACUTE Routine 1:58 PM GLOVE FORMER Long-term use of high-risk medication from Last [...] Goodwin MD LAB BLOOD ORDERABLES Final Result [facility] [address] [facility] [place] [address] * Erythrocyte sedimentation rate (01/02/2025 11:21 AM CDT) [facility] Erythrocyte sedimentation rate 12 1 - 20 mm/hr Blood 01/02/2025 11:2 1 AM CDT 01/02/2025 3:44 PM CDT Martha Goodwin MD LAB BLOOD ORDERABLES Final Result Performing Organization Address [facility] Co de Phone Number [facility] [address] [facility] [place] [address] * (ABNORMAL) CBC without differential (01/02/2025 11:21 AM CDT) [facility] WBC 10.87(H) 3.80 - 9.90 K/cumm Hgb 14.1 11.9 - 15.5 g/dL [facility] Hct 43.0 35.6 - 45.5 % [facility] Plt 351 150 - 400 K/cumm [facility] MPV 10.9 9.1 - 12.3 fL [facility] RBC 4.76 3.90 - 5.20 M/cumm [facility] MCV 90.3 81.3 - 96.4 fL [facility] MCH 29.6 27.1 - 33.3 pg [facility] MCHC 32.8 32.3 - 35.7 g/dL [facility] RDW CV 13.2 11.1 - 14.9 % [facility] RDW SD 43.4 35.7 - 48.1 fL [facility] NRBC abs 0.00 0.00 - 0.01 K/cumm [facility] Blood 01/02/2025 11:2 1 AM CDT 01/02/2025 3:44 PM CDT Martha Goodwin MD LAB BLOOD ORDERABLES Final Result Performing Organization Address City/[facility]/ZIP Co de Phone Number [facility] [address] Department [place] [address] * (ABNORMAL) Comprehensive metabolic panel (01/02/2025 11:21 AM CDT) Sodium 140 135 - 145 mmol/L Potassium, pl 4.2 3.3 - 4.9 mmol/L [facility] Chloride 102 97 - 110 mmol/L [facility] CO2 23 22 - 32 mmol/L [facility] Anion gap 15 2 - 15 mmol/L [facility] BUN 24 6 - 25 mg/dL [facility] Creatinine 0.59(L) 0.60 - 1.10 mg/dL [facility] Glucose 104 70 - 199 mg/dL [facility] Comment: Interpretive Data Fasting glucose >/= 126 [...] 2022. Calcium 9.5 8.5 - 10.3 mg/dL [facility] Bilirubin, total 0.4 0.1 - 1.2 mg/dL [facility] Protein, pl 7.3 6.5 - 8.5 g/dL [facility] Albumin 4.1 3.5 - 5.0 g/dL [facility] Alk phos 61 40 - 130 Units/L [facility] ALT 19 7 - 45 Units/L [facility] AST 18 10 - 45 Units/L [facility] Blood 01/02/2025 11:2 1 AM CDT 01/02/2025 3:44 PM CDT Martha Goodwin MD LAB BLOOD ORDERABLES Final Result [facility] [address] Department [place] [address] * Hepatitis panel, acute (07/22/2021 1:58 PM GLOVE FORMER) Hep A IgM Nonreactive Nonreactive [facility] Comment: Interpretive Data: If Hep A IgM Ab is reported as Equivocal, a new sample should be drawn in two weeks for testing. Current interpretive data was last revised on 19. Hep B core IgM Nonreactive Nonreactive [facility] Comment: Interpretive Data If HepB Core IgM Ab is reported as Equivocal, a new sample should be drawn in two weeks for testing. Current interpretive data was last revised on 19. Hep C Ab Nonreactive Nonreactive [facility] Comment: Interpretive Data Nonreactive: Antibodies to HCV [...] last revised on 2019. HepBsAg Nonreactive Nonreactive [facility] Blood 07/22/2021 1:58 PM GLOVE FORMER 07/22/2021 4:23 PM GLOVE FORMER Martha Goodwin MD LAB MICROBIOLOGY - NERAL ORDERABLES Final Result [facility] [address] Department [place] [address] from Last 3 Months or Most Recently Relevant to Health Maintenance Insurance [facility] ANTHEM ACCESS ANTHEM ACCESS Care Teams Make Up Operator Helper Relationship Specialty Start Date End Date Arlen Gant PA [address] [place] [address], [place] [address] PCP - General Family Medicine 03/23/21
--- OUTSIDE RECORDS SUMMARY | 2025-02-15 11:26 | XMS_ITS | Encounter Summary ---
Author Organization [facility] Address [address] [place] [address] Care Team Providers Care Director Of Sustainability Name Role Phone Unavailable Primary Care Provider Unavailabl e Encounter Details Date Type Department Care Team (Late st Contact Info) Description 02/13/2025 External Device Data [facility] ABSTRACTION Provider, Abstract NO ADDRESS ON FILE Social History Tobacco Use Types Packs/Day Years Used Date Smoking Tobacco: Never Assessed Comments No Sex and Gender Information Value Date Recorded Sex Assigned at Not on file Legal Sex Female 1:28 PM CDT Gender Identity Not on file Sexual Orientation Not on file documented as of this encounter Plan of Treatment Not on file documented as of this encounter Visit Diagnoses Not on filedocumented in this encounter
--- OUTSIDE RECORDS SUMMARY | 2025-02-15 11:26 | XMS_ITS | Clinical Summary ---
Author Organization [facility] [address] Address [address] [place] [address] Care Team Providers Care Information Clerk Name Role Phone Unavailable Primary Care Provider Unavailabl e Encounters Date Type Department Care Team Description 02/13/2025 External Device Data [facility] ABSTRACTION Provider, Abstract 01/15/2025 External Device Data [facility] ABSTRACTION Provider, Abstract 12/25/2024 External Device Data [facility]STRACTION Provider, Abstract 12/25/2024 External Device Data [facility] ABSTRACTION Provider, Abstract 12/25/2024 External Device Data [facility] ABSTRACTION Provider, Abstract 12/22/2024 10:37 AM CDT - 12/22/2024 11:59 PM CDT Hospital Encounter [facility] [address] [place] [address] Self Referral Provider, Mammography, Zoey Griffiths MD Discharge Disposition: Home or Self Care from Last 3 Months Social History Tobacco Use Types Packs/Day Years Used Date Smoking Tobacco: Never Assessed Comments No Sex and Gender Information Value Date Recorded Sex Assigned at Not on file Legal Sex Female 1:28 PM CDT Gender Identity Not on file Sexual Orientation Not on file Plan of Treatment Health Maintenance Due Date Last Done Comments Pre-Diabetes and Diabetes Screening 1975 DTAP/TDAP/TD VACCINES (1 - Tdap) 1996 HEPATITIS B VACCINES (1 of 3 - 19+ 3-dose series) 1996 HPV/Cotest (21-29) 1998 CERVICAL CANCER SCREENING 2007 HPV/Cotest (30-65) 2007 PAP SMEAR 2007 COLORECTAL SCREENING 2022 Colorectal Cancer Screening 2022 FIT-DNA Q 3 years 2022 FIT/FOBT Q 1 year 2022 Flex Sig/CT Colonography Q 5 years 2022 INFLUENZA VACCINE (#1) 2025 4, 07/22/2021, 07/01/2020, Additional history exists BREAST CANCER SCREENING 12/22/2025 12/22/2024 Procedures Procedure Name Priority Date/Time Associated Diagnosis Comments MAMMO 3D ROSE SCREEN BILAT W OR WO CAD Routine 12/22/2024 10:54 AM CDT Visit for screening mammogram from Last 3 Months Results * MAMMO 3D ROSE SCREEN BILAT W OR WO CAD (12/22/2024 10:54 AM CDT) Anatomical Region Laterality Modality Breast Bilateral Mammography 12/22/2024 10:5 4 AM CDT Addenda Addendum by Madisyn Nieves MD on 12/31/2024 10:59 AM CDT Addendum: Prior imaging was made available for comparison. Comparison is made to mammograms dating back to 2018. No suspicious abnormality is seen on the current mammogram. Since the prior study, there has been no significant interval change. OVERALL FINAL ASSESSMENT: BI-RADS CATEGORY 1 : Negative IMPRESSION: No mammographic evidence of malignancy. RECOMMENDATION: Annual screening mammography. Narrative 12/22/2024 11:36 AM CDT BILATERAL FULL-FIELD DIGITAL SCREENING MAMMOGRAM WITH CAD WITH 3D TOMOSYNTHESIS DATE: 12/22/2024 10:54 AM HISTORY: Routine screening. TECHNIQUE: Full-field digital craniocaudal and mediolateral oblique projections of both breasts were obtained. Low-dose full-field digital breast tomosynthesis examination was performed with 2D and 3D acquisitions. Examination is read in conjunction with computer aided detection. COMPARISON: None available. BREAST COMPOSITION: There are scattered areas of fibroglandular density. FINDINGS: Prior mammograms have been requested. No interpretation is performed at this time. OVERALL FINAL ASSESSMENT: BI-RADS 0: Comparison with previous examinations. RECOMMENDATIONS: Comparison to priors. DICTATION LOCATION: [facility]. us Viki Singhlesleerosalina DO MAMMO ORDERABLES Edited Re sult - Final from Last 3 Months Insurance [employer] [facility]
--- OUTSIDE RECORDS SUMMARY | 2025-02-15 11:27 | XMS_ITS | Clinical Summary ---
Author Organization [facility] Care Team Providers Care Calcine Furnace Tender Name Role Phone Unavailable Primary Care Provider [...] Completed 5, 07/01/2020, 04/17/2019, Additional history exists Human Papillomavirus (HPV) Immunization Aged Out No longer eligible based on patient's age to complete this topic Meningococcal Immunization (ACWY) Aged Out No longer eligible based on patient's age to complete this topic Pneumococcal Immunization Combined Aged Out No longer eligible based on patient's age to complete this topic Rotavirus Immunization Aged Out No lo nger eligible based on patient's age to complete this topic
--- OUTSIDE RECORDS SUMMARY | 2025-02-15 11:27 | XMS_ITS ---
Author Organization [facility] [place] ([address]) Address [address] [facility] [place] [address] [place] [address] Care Team Providers Care Service Observer Name Role Phone Yordy ARAGON, Minh Primary Care Provider Unavailab le Natalia Moses Unavailable [phone] ZZ-Migration, Provider Unavailable Unavailab le Allergies Allergen (clinical drug ingredient) Drug/Non Drug Allergy documented on EMR Reaction Allergy Type Onset Date Status diphenhydramine Benadryl Allergy hives Drug Allergy Active REASON FOR VISIT Multum To Medispan Conversion Encounter Medications Medication SIG (Take, Route, Frequency, Duration) Notes Start Date End Date Status Enbrel 25 MG DIRECTED SUBCUTANEOUSLY ONCE A WEEK; Duration: 30 DAY(S) *Please review and pick correct strength-formula tion from Medispan options. If intended option is not shown, discontinue and re-order from Quick Search* Active Folic Acid 400 MCG 1 tab(s) orally once a day; Duration: 30 day(s) Not-Taking Xopenex HFA 45 MCG/ACT 2 puff(s) inhaled Q4-6 hours, PRN and per the asthma action plan Active WEGOVY (1.7 MG DOSE) 1.7 MG/0.75 ML (1.7 MG DOSE) DIRECTED SUBCUTANEOUSLY ONCE A WEEK *Please review for potential replacement for e-prescription and drug interaction check* Active Diclofenac Sodium ER 100 MG 1 tab(s) orally once a day; Duration: 30 day(s) Active Methotrexate Sodium 10 MG 1 tab(s) orally once a week; Duration: 30 day(s) Not-Taking NASAL WASHES N/A DIRECTED INTRANASALLY NEEDED; Duration: 30 *Please review for potential replacement for e-prescription and drug interaction check* Active Omeprazole 10 MG 1 cap(s) orally once a day; Duration: 30 day(s) Active Singulair 10 MG 1 tab(s) orally once a day; Duration: 90 days Active Singulair 10 MG 1 tab(s) orally once a day; Duration: 90 days Active Levothyroxine Sodium 75 MCG 1 tab(s) orally once a day; Duration: 30 day(s) Active Lisinopril 10 MG 1 tab(s) orally once a day; Duration: 30 day(s) Not-Taking Encounters Encounter Location Date Provider Diagnosis [address] [address] 01/14/2024 Provider Jack Allergic rhinitis due to animal (cat) (dog) hair and dander J30.81 and Chronic cough R05.3 Assessments Encounter Date Diagnosis (ICD Code) Assessment Notes Treatment Notes Treatment Clinical Notes Section Notes 01/14/2024 Allergic rhinitis due to animal (cat) (dog) hair and dander (ICD-10 - J30.81) 01/14/2024 Chronic cough (ICD-10 - R05.3) Plan Of Treatment Medication Medication Name Sig Start Date Stop Date Notes Xopenex HFA 45 MCG/ACT 2 puff(s) inhaled Q4-6 hours, PRN and per the asthma action plan NASAL WASHES N/A DIRECTED INTRANASALLY NEEDED; Duration: 30 *Please review for potential replacement for e-prescription and drug interaction check* Singulair 10 MG 1 tab(s) orally once a day; Duration: 90 days Next Appt Details Provider Name:Natalia cross, 03/20/2025 04:00:00 PM, [facility] [address] [place] [address], [address], Progress Notes * Myriam SMALL MDOB: 7 (49 yo F)Acc No.[id number]:01/14/2024 Patient: Myriam DELATORRE Provider: Mackenzie Palm :1975 A ge:48 Y S ex:Female Date:01/14/2024 Address:[facility] [address] Pcp:Minh Scales MD Subjective: * Chief Complaints: * 1 . Multum To Medispan Conversion Encounter. * Medical History: * Medications: T aking WEGOVY (1.7 MG DOSE) 1.7 MG/0.75 ML (1.7 MG DOSE) SOLUTION DIRECTED SUBCUTANEOUSLY ONCE A WEEK , Notes to Pharmacist: *Please review for potential replacement for e-prescription and drug interaction check*, Taking Enbrel 25 MG KIT DIRECTED SUBCUTANEOUSLY ONCE A WEEK , Notes to Pharmacist: *Please review and pick correct strength-formulation from [facility] options. If intended option is not shown, discontinue and re-order from Quick Search*, Taking Diclofenac Sodium ER 100 MG Tablet Extended Release 24 Hour 1 tab(s) orally once a day , Taking Levothyroxine Sodium 75 MCG Tablet 1 tab(s) orally once a day , Taking Omeprazole 10 MG Capsule Delayed Release 1 cap(s) orally once a day , Taking Singulair 10 MG Tablet 1 tab(s) orally once a day , Not-Taking/PRN Folic Acid 400 MCG Tablet 1 tab(s) orally once a day , Not-Taking/PRN Lisinopril 10 MG Tablet 1 tab(s) orally once a day , Not-Taking/PRN Methotrexate Sodium 10 MG Tablet 1 tab(s) orally once a week * Allergies: B enadryl Allergy: hives. Objective: * Vitals: Assessment: * Assessment: 1. A llergic rhinitis due to animal (cat) (dog) hair and dander - J30.81 (Primary) ?2. C hronic cough - R05.3 Plan: * Treatment: 2. C hronic cough Refill Singulair Tablet, 10 MG, 1 tab(s), orally, once a day, 90 days, 90 Tablet, Refills 3; C ontinue Xopenex HFA Aerosol, 45 MCG/ACT, 2 puff(s), inhaled, Q4-6 hours, PRN and per the asthma action plan. * Billing Information: * Visit Code: * Procedure Codes: * Electronic signature of [facility] aisha LeonardZ-Migration on 02/15/2025 at 11:26 AM CDT Sign off status: Pending * Provider: Mackenzie collado Migration Date: 0 01/14/2024 Generated for Donnie zamora/Homer/James on: 0 02/15/2025 11:26 AM CDT
--- OUTSIDE RECORDS SUMMARY | 2025-02-15 11:27 | XMS_ITS | Patient Health Record ---
Author Organization [facility] ([address]) Address [address] [facility] [address] [place] [address] Care Team Providers Care Horn Player Name Role Phone Yordy ARAGON, Minh Primary Care Provider Unavailab rasta Kadeem Mosesquelyn Unavailable [phone] Allergies Allergen (clinical drug ingredient) Drug/Non Drug Allergy documented on EMR Reaction Allergy Type Onset Date Status diphenhydramine Benadryl Allergy hives Drug Allergy Active Reason For Referral No Information Medications Medication SIG (Take, Route, Frequency, Duration) Notes Start Date End Date Status Flonase Allergy Relief 50 MCG/ACT 1 spray in each nostril Nasally Once a day Active Lisinopril 10 MG 1 tab(s) orally once a day; Duration: 30 day(s) Not-Taking XOPENEX HFA 45 mcg/inh 2 puff(s) inhaled Q4-6 hours, PRN and per the asthma action plan Active Methotrexate Sodium 10 MG 1 tab(s) orally once a week; Duration: 30 day(s) Not-Taking Singulair 10 MG 1 tab(s) orally once a day; Duration: 90 days Active Folic Acid 400 MCG 1 tab(s) orally once a day; Duration: 30 day(s) Not-Taking Omeprazole 10 MG 1 cap(s) orally once a day; Duration: 30 day(s) Active NASAL WASHES N/A as directed intranasally as needed; Duration: 30 Active Diclofenac Sodium ER 100 MG 1 tab(s) orally once a day; Duration: 30 day(s) Active Levothyroxine Sodium 75 MCG 1 tab(s) orally once a day; Duration: 30 day(s) Active WEGOVY (1.7 MG DOSE) 1.7 MG/0.75 ML (1.7 MG DOSE) DIRECTED SUBCUTANEOUSLY ONCE A WEEK *Please review for potential replacement for e-prescription and drug interaction check* Active Enbrel 25 MG DIRECTED SUBCUTANEOUSLY ONCE A WEEK; Duration: 30 DAY(S) *Please review and pick correct strength-formula tion from [employer] options. If intended option is not shown, discontinue and re-order from Quick Search* Active Xopenex HFA 45 MCG/ACT 2 puff(s) inhaled Q4-6 hours, PRN and per the asthma action plan Active Immunizations Vaccine Route Administration Date Status Comme nts Flucelvax Unknown 06/20/2019 Administered Influenza Unknown 04/12/2018 Administered [employer] Influenza Unknown 05/23/2018 Administered NOC Flucelevax Quadrivalent Unknown 07/01/2020 Administered NOC Tdap Unknown 11/29/2016 Administered Portal [employer] Social History Tobacco Use: Social History Observation Description Date Details (start date - stop date) Never Smoker NA - NA Smoking Smart Form: Question Answer Notes Are you a: never smoker Tobacco Control (Standard) Question Answer Notes Tobacco use: Nonsmoker Problems Problem Type SNOMED Code ICD Code Onset Dates Problem Status W/U Status Risk Notes Problem Chronic allergic conjunctivitis (25787034) Other chronic allergic conjunctivitis (H10.45) Active confirmed Problem Allergic rhinitis (95807381) Other allergic rhinitis (J30.89) Active confirmed Problem Dermatitis (319592076) Dermatitis, unspecified (L30.9) Active confirmed Problem Rheumatoid arthritis (45056045) Rheumatoid arthritis with rheumatoid factor of unspecified site without organ or systems involvement (M05.70) Active confirmed Problem Cough (03729610) Cough (R05) Active confirmed Problem Allergic rhinitis caused by animal hair and dander (375387539685637) Allergic rhinitis due to animal (cat) (dog) hair and dander (J30.81) Active confirmed Problem Chronic cough (26668932) Chronic cough (R05.3) Active confirmed Vital Signs Oximetry 100 % 03/14/2024 Blood pressure diastolic 83 mm Hg 03/14/2024 Height 64 in 03/14/2024 Blood pressure systolic 124 mm Hg 03/14/2024 Weight 198.0 lbs 03/14/2024 BMI 33.98 kg/m2 03/14/2024 Encounters Encounter Location Date Provider Diagnosis [facility] [address] [place] [address] 03/14/2024 Natalia Josué Allergic rhinitis du e to animal (cat) (dog) hair and dander J30.81 ; Chronic cough R05.3 ; Other allergic rhinitis J30.89 and Other chronic allergic conjunctivitis H10.45 Assessments Encounter Date Diagnosis (ICD Code) Assessment Notes Treatment Notes Treatment Clinical Notes Section Notes 03/14/2024 Allergic rhinitis due to animal (cat) (dog) hair and dander (ICD-10 - J30.81) Myriam clearly suffers from atopic disease based upon our skin testing with sensitivity to cat and dust mite. Accordingly, we have introduced a new, aggressive medication regimen, discussed nasal washes and allergy-specific avoidance measures. Most likely has a combination of non allergic and allergic rhinitis. Plan to continue Singulair and Flonase. Sinus rinses as needed. 03/14/2024 Chronic cough (ICD-10 - R05.3) Possible intermittent asthma which flares with viruses. Spirometry at last check was essentially normal. For now, continue Singulair. 03/14/2024 Other allergic rhinitis (ICD-10 - J30.89) Follow allergen avoidance, meds as above 03/14/2024 Other chronic allergic conjunctivitis (ICD-10 - H10.45) Given ocular signs and symptoms I encouraged allergy avoidance measures and meds as above. She was evaluated by ophthalmology and diagnosed with severe dry eyes. Continue artificial tears BID new drops made from her own blood. 03/14/2024 Other Plan Of Treatment Next Appt Details Provider Name:Natalia cross, 03/20/2025 04:00:00 PM, [address], [place], [address], Insurance Providers Payer Name Payer Address Payer Phone Subscriber Number Group Number Insured Name Patient Relationship to Insured Coverage Start Date Coverage End Date [facility] [address] [place] [address] [id number] [place] Myriam Small Self - patient is the insured 01/01/202 4 Medical (General) History Medical History History ICD Code Hypothyroidism, unspecified Anxiety disorder, unspecified Gastro-esophageal reflux disease without esophagitis Rheumatoid arthritis with rh eumatoid factor of unspecified site without organ or systems involvement M05.70 Surgical History Surgery Date(Month/Year) ankle surgery 05/01/1989 left ankle surgery 1988 Hospitalization History Reason Date(Month/Year) Vaginal delivery 1999
[2025-02-15 18:06] LABS: Hematocrit 43.7 % (37.0-47.0); Hemoglobin 14.3 g/dL (12.0-15.0); Mean Corpuscular HGB Conc 32.7 g/dl (32-36); Mean Corpuscular Hemoglobin 29.7 pg (26-34); Mean Corpuscular Volume 90.9 fl (80-100); Platelet Count Result 275 k/mm3 (150-375); Red Blood Count 4.81 M/mm3 (4.2-5.4); White Blood Count 4.5 K/mm3 (4.5-10.0)
[2025-02-15 18:27] LABS: Alanine Aminotransferase 22 U/L (6-35); Albumin Level 4.5 g/dL (3.5-5.1); Alkaline Phosphatase 54 U/L (38-126); Anion Gap 11 mmol/L (4-12); Aspartate Amino Transferase 71 U/L (14-36); Bilirubin,Total 0.7 mg/dL (0.2-1.3); Blood Urea Nitrogen 9 mg/dL (7-17); Calcium 9.4 mg/dL (8.4-10.2); Carbon Dioxide 25 mmol/L (22-30); Chloride 105 mmol/L (98-107); Cholesterol 193 mg/dL (0-200); Estimated Glomerular Filt Rate > 60; Glucose 74 mg/dL (65-110); HDL Direct 45 mg/dL; Potassium 3.7 mmol/L (3.4-5.0); Sodium 141 mmol/L (137-145); Total Protein 7.9 g/dL (6.3-8.2); Triglycerides 104 mg/dL (<150)
[2025-02-15 18:39] LABS: Free T4 Free Thyroxine 2.06 ng/dL (0.78-2.19)
[2025-02-15 19:03] LABS: Thyroid Stimulating Hormone 1.380 uIU/mL (0.465-4.680)
[2025-02-19 02:07] LABS: 1,25-Dihydroxy, Vitamin D-2 <10 pg/mL (.); 1,25-Dihydroxy, Vitamin D-3 54 pg/mL (.); Total 1,25-Dihydroxy,Vitamin D 54 pg/mL (.)
== END 2025-02-15 11:24 | disposition home or self-care (01) ==
LOC: ANHGOSHLAB 11:24
PROVIDERS: PCP Family Medicine; Visit Provider Family Medicine
DX: E03.9 Hypothyroidism, unspecified (principal); I10 Essential (primary) hypertension; E55.9 Vitamin D deficiency, unspecified; E66.9 Obesity, unspecified
CPT/HCPCS: 36415; 80053; 80061; 82652; 84439; 84443; 85027